=== PATIENT | female | born 1980 | race Caucasian/White ===

== ENCOUNTER → 2019-05-26 11:07 | Outpatient (CLI) | payer OTHER, SELFPAY | PROVIDERS: Visit Provider Nurse Practitioner | DX: R30.0 Dysuria (principal) | CPT/HCPCS: 87086 ==

== ENCOUNTER → 2019-08-13 08:00 | Outpatient (CLI) | payer OTHER, SELFPAY ==
[2019-08-13 09:03] LABS: Appearance Urine UA CLEAR; Bilirubin Urine UA NEGATIVE (NEGATIVE); Color Urine UA YELLOW; Glucose Urine UA NEGATIVE (Negative); Ketones Urine UA NEGATIVE (NEGATIVE); Leukocyte Esterase Urine UA NEGATIVE (NEGATIVE); Nitrite Urine UA NEGATIVE (Negative); Occult Blood Urine UA 3+ (Negative); Protein Urine UA TRACE (Negative); Specific Gravity Urine UA >=1.030 (1.000-1.035); Urobilinogen Urine UA 0.2 E.U./dL (0.2)
[2019-08-13 09:04] LABS: Add Manual Diff / Slide Review NO; Basophils Absolute Auto 0 /uL (0-100); Basophils Percent Auto 0.7 % (0-2); Eosinophils Absolute Auto 300 /uL (0-450); Eosinophils Percent Auto 5.6 % (2-4); Hematocrit 41.7 % (36-46); Hemoglobin 14.2 g/dL (12.0-16.0); Lymphocytes Absolute Auto 1400 /uL (1100-4500); Lymphocytes Percent Auto 25.3 % (25-40); Mean Corpuscular Hemoglobin 28.5 PG (26-34); Mean Corpuscular Volume 83.7 fL (80-100); Monocytes Absolute Auto 400 /uL (0-900); Neutrophils Absolute Auto 3400 /uL (1500-7000); Neutrophils Percent Auto 61.4 % (50-75); Platelet Count 302 X10^3/uL (150-400); Red Blood Cell Count 4.98 X10^6/uL (4.0-5.2); Red Cell Distribution Width 13.5 % (11.6-14.8); White Blood Cell Count 5.5 X10^3/uL (4.5-11.0)
[2019-08-13 09:18] LABS: Alanine Aminotransferase 24 IU/L (<35); Albumin 4.5 g/dL (3.5-5.0); Albumin Globulin Ratio 1.3 (1.0-2.8); Alkaline Phosphatase 73 U/L (38-126); Aspartate Aminotransferase 28 IU/L (14-36); BUN Creatinine Ratio 28.3 (6-22); Bilirubin Total 0.3 mg/dL (0.2-1.3); Blood Urea Nitrogen 17 mg/dL (7-17); Calcium 9.4 mg/dL (8.4-10.2); Carbon Dioxide 29 mmol/L (22-32); Chloride 102 mmol/L (98-107); Cholesterol 191 mg/dL (140-199); Estimated Glomerular Filt Rate > 60.0 mL/min (>60); Globulin 3.6 g/dL (1.7-4.1); Glucose 94 mg/dL (70-100); HDL Cholesterol 49 mg/dL (40-60); HEMOLYSIS < 15 (0-50); LDL Cholesterol Calculated 128 mg/dL (<100); Potassium 3.7 mmol/L (3.4-5.1); Sodium 140 mmol/L (137-145); Total Protein 8.1 g/dL (6.3-8.2); Triglycerides 72 mg/dL (35-150)
[2019-08-13 09:49] LABS: pH Urine UA 5.5 (4.5-8.0)
[2019-08-13 09:52] LABS: Bacteria Urine Few (2-10); Mucus Urine 2+ (Negative); RBC Urine 0-1/HPF (0-5/HPF); Squamous Epithelial Cell Urine 1-5 /HPF (0-5/HPF); WBC Urine 1-5/HPF (0-5/HPF)
[2019-08-13 09:53] LABS: Culture Indicated Urine Specimen Cultured
[2019-08-13 10:13] LABS: Follicle Stimulating Hormone 7.63 mIU/mL
[2019-08-13 10:38] LABS: HEMOLYSIS < 15 (0-50); Iron 40 ug/dL (37-170)
[2019-08-13 10:48] LABS: Percent Iron Saturation 9 % (15-50); Total Iron Binding Capacity 423 ug/dL (265-497); Transferrin 353 mg/dL (206-381)
[2019-08-13 10:55] LABS: Vitamin D 25 Hydroxy (D3) 30.5 ng/mL (30.0-100.0)
[2019-08-13 11:09] LABS: Thyroid Stimulating Hormone 2.65 uIU/mL (0.47-4.68)
== END ==
PROVIDERS: PCP Family Medicine; Visit Provider Family Medicine
DX: Z13.29 Encounter for screening for other suspected endocrine disorder (principal); Z13.220 Encounter for screening for lipoid disorders; D64.9 Anemia, unspecified; E55.9 Vitamin D deficiency, unspecified; N92.6 Irregular menstruation, unspecified; N39.0 Urinary tract infection, site not specified; N94.6 Dysmenorrhea, unspecified
CPT/HCPCS: 36415; 80053; 80061; 81003; 81015; 82306; 83001; 83540; 83550; 84443; 85025; 87086

== ENCOUNTER 2019-12-12 15:01 | Emergency (ER) | payer OTHER, SELFPAY ==
[2019-12-12 15:05] VITALS: BP 131/74; PULSE 84; RESP 16; TEMP 36.9; O2SAT 98
[2019-12-12 15:28] LABS: Add Manual Diff / Slide Review NO; Basophils Absolute Auto 0 /uL (0-100); Basophils Percent Auto 0.2 % (0-2); Eosinophils Absolute Auto 0 /uL (0-450); Eosinophils Percent Auto 0.1 % (2-4); Hematocrit 41.7 % (36-46); Hemoglobin 14.7 g/dL (12.0-16.0); Lymphocytes Absolute Auto 800 /uL (1100-4500); Lymphocytes Percent Auto 9.2 % (25-40); Mean Corpuscular HGB Conc 35.4 % (30-36); Mean Corpuscular Hemoglobin 29.9 PG (26-34); Mean Corpuscular Volume 84.5 fL (80-100); Monocytes Absolute Auto 300 /uL (0-900); Monocytes Percent Auto 2.9 % (3-14); Neutrophils Absolute Auto 7500 /uL (1500-7000); Neutrophils Percent Auto 87.6 % (50-75); Platelet Count 316 X10^3/uL (150-400); Red Blood Cell Count 4.93 X10^6/uL (4.0-5.2); White Blood Cell Count 8.6 X10^3/uL (4.5-11.0)
[2019-12-12] MEDS: SODIUM CHLORIDE 0.9% 1,000 ML 1000 ML IV (15:44)
--- NOTE | 2019-12-12 15:44 | ED.WEAKNESS ---
HPI - Weakness <DALE Snell - Last Filed: 12/12/19 22:45> General Chief complaint: Weakness Stated complaint: diarrhea nause dizziness sob Time Seen by Provider: 12/12/19 15:04 Source: patient Mode of arrival: Ambulatory Limitations: no limitations History of Present Illness HPI Narrative: This is a 39-year-old female, former smoker, has history of anemia presents to ED with chief complain of nausea, fatigue, feeling groggy, and diarrhea since she woke up this morning at 8:00 a.m.. Patient reports she had 1 episode of diarrhea and 2 formed stools today. Reports sharp abdominal cramping which lasted about 30 seconds for 4 episodes in below umbilicus. Patient feels thirsty even though she has been hydrated adequately. Patient denies fever, myalgia, sore throat, cough but states has chills.. No recent exposure to known Covid patients. Patient denies changing in diet or bad food. Patient is not sure whether she has blood in her stool but does not think so. Patient denies urinary symptoms including urgency, frequency, dysuria. LMP 1.5- 2 weeks ago and has IUD in placed. Patient denies recent foreign travel. Related Data Previous Rx's Medication Instructions Recorded ondansetron 4 mg PO BID-TID PRN #7 tab 12/12/19 Allergies Allergy/AdvReac Type Severity Reaction Status Date / Time No Known Drug Allergies Allergy Verified 12/12/19 16:02 Review of Systems <DALE Snell - Last Filed: 12/12/19 22:45> Review of Systems Narrative: General: Denies fever, (+) chills, (+) fatigue, malaise, sweats. HEENT: Denies sinus pain, ear pain, sore throat, difficulty swallowing, dizziness. Respiratory: Denies dyspnea, cough, wheezing, hemoptysis, sputum. Cardiovascular: Denies chest pain, palpitations, orthopnea, edema. Gastrointestinal: See HPI : Denies dysuria, frequency, incontinence, hematuria, urinary retention. Musculoskeletal: Denies weakness, joint pain or bony pain. Skin: Denies rash, skin lesions, or other. Neurologic: Denies weakness, headache, numbness, change in speech, confusion, seizures, incoordination. Psychiatric: No concerning psychosocial issues. 12-point review of systems is negative except for those stated above. Patient History <DALE Snell - Last Filed: 12/12/19 22:45> Medical History Anemia (Chronic ~2016) Chicken pox (Resolved ~1981) Foot pain (Chronic ~2015) Fractures (Resolved ~2015) Headache (Inactive ~1993) Heavy menstrual period (Chronic ~2015) Irregular menstrual cycle (Chronic ~2015) Migraines (Inactive ~1999) Painful menstrual periods (Chronic ~2015) Vertigo (Inactive ~2015) Surgical History Anesthesia (Resolved) History of oral surgery (Resolved ~2008) Family History Father Lymphoma Hypertension Mother Diabetes mellitus Hypertension Hyperlipidemia Grandmother No problems noted. Grandmother Cervical cancer Leukemia Grandfather Prostate cancer Social History Smoking Status: Former smoker Smoking Status: Former smoker alcohol intake frequency: 0-2 drinks per day Substance Use Type: marijuana Exam <DALE Snell - Last Filed: 12/12/19 22:45> Narrative Exam Narrative: GEN: Alert, oriented x 3, well appearing and nourished, and in no acute distress. Head: Normal cephalic, atraumatic. No scalp or temporal tenderness, palpable mass or rash. EYES: Pupils are equal, round, and reactive to light and accommodation. Extraocular muscles are intact bilaterally. There is no subconjunctival hemorrhage, exudate and sclera non-icteric. ENT: Hearing grossly intact. Nose without bleeding, purulent discharge. Mucous membrane moist, no mucosal lesion. Throat without erythema, tonsillar hypertrophy or exudate. Uvula in midline, airway patent. Neck: Trachea in midline. No JVD, non-tender without lymphadenopathy. No masses or thyroid megaly. Supple, non-tender and no meningeal signs. CARDIAC: Normal regular rate and rhythm without murmurs, gallops, or rubs. No chest wall tenderness. No peripheral edema, cyanosis or pallor. Capillary refill is less than 2 seconds. RESPIRATORY: Lungs are clear to auscultate bilaterally. No cough, wheezes, rales, or rhonchi. No stridor, respiratory distress, increase work of breathing, or accessary muscle used. ABD: Abdomen soft, nontender and non-distended. No guarding or rebound tenderness to palpate. Bowel sounds are normal in all 4 quadrants. There is no palpable masses or organomegaly. EXT: Full painless ROM of all extremities with no loss of sensation, strength, effusion or edema. SKIN: Warm, dry, normal color for patient. No erythema, lesions or rash over visible areas. BACK: Nontender without deformity or crepitance. No flank tenderness. NEUROLOGICAL: Alert and oriented to place, time and person. Sensation and motor function intact bilaterally. No facial droops, dysphasia. PSYCHIATRIC: Good judgement and reason, without hallucinations, abnormal affect or abnormal behaviors during the examination. Patient is not suicidal. Initial Vital Signs Initial Vital Signs: Vital Signs Temperature 98.4 F 12/12/19 15:05 Pulse Rate 84 12/12/19 15:05 Respiratory Rate 16 12/12/19 15:05 Blood Pressure 131/74 12/12/19 15:05 Pulse Oximetry 98 12/12/19 15:05 <Mauro Burton DO - Last Filed: 12/13/19 07:03> Initial Vital Signs Initial Vital Signs: Vital Signs Temperature 98.4 F 12/12/19 15:05 Pulse Rate 84 12/12/19 15:05 Respiratory Rate 16 12/12/19 15:05 Blood Pressure 131/74 12/12/19 15:05 Pulse Oximetry 98 12/12/19 15:05 Scores <DALE Snell - Last Filed: 12/12/19 22:45> GCS Mark coma scale eye opening: Spontaneous Eden coma scale verbal response: Orientated Mark coma scale motor response: Obey commands Eden coma scale total score: 15 Course <DALE Snell - Last Filed: 12/12/19 22:45> Course Course Narrative: ([id number]) Patient declined analgesics including Tylenol or toward our when offered. Orders Ordered: Discontinued Medications Sodium Chloride (Normal Saline 0.9%) 1,000 mls @ 1,000 mls/hr IV BOLUS ONE Stop: 12/12/19 16:08 Last Infusion: 12/12/19 16:55 Dose: 0 mls/hr Documented by: Admin: 12/12/19 15:44 Dose: 1,000 mls/hr Documented by: JENN Ketorolac Tromethamine (Toradol) 30 mg IV NOW ONE Stop: 12/12/19 16:08 Last Admin: 12/12/19 16:23 Dose: 30 mg Documented by: JENN Ondansetron HCl (Zofran) 4 mg IV NOW ONE Stop: 12/12/19 15:10 Last Admin: 12/12/19 15:45 Dose: 4 mg Documented by: JENN Vital Signs Vital signs: Vital Signs - 8 hr 12/12/19 15:05 12/12/19 15:59 12/12/19 17:16 Temperature 98.4 F Pulse Rate 84 72 73 Respiratory Rate 16 18 12 Blood Pressure 131/74 Blood Pressure [Right Arm] 110/66 109/59 L Pulse Oximetry 98 97 99 <Mauro Burton DO - Last Filed: 12/13/19 07:03> Orders Ordered: Discontinued Medications Sodium Chloride (Normal Saline 0.9%) 1,000 mls @ 1,000 mls/hr IV BOLUS ONE Stop: 12/12/19 16:08 Last Infusion: 12/12/19 16:55 Dose: 0 mls/hr Documented by: Admin: 12/12/19 15:44 Dose: 1,000 mls/hr Documented by: JENN Ketorolac Tromethamine (Toradol) 30 mg IV NOW ONE Stop: 12/12/19 16:08 Last Admin: 12/12/19 16:23 Dose: 30 mg Documented by: JENN Ondansetron HCl (Zofran) 4 mg IV NOW ONE Stop: 12/12/19 15:10 Last Admin: 12/12/19 15:45 Dose: 4 mg Documented by: JENN Vital Signs Vital signs: Vital Signs - 8 hr 12/12/19 15:05 12/12/19 15:59 12/12/19 17:16 Temperature 98.4 F Pulse Rate 84 72 73 Respiratory Rate 16 18 12 Blood Pressure 131/74 Blood Pressure [Right Arm] 110/66 109/59 L Pulse Oximetry 98 97 99 MDM - Weakness <Inocencio Casanova-Oras, MONITORING COORDINATOR - Last Filed: 12/12/19 22:45> Differential Diagnosis Differential diagnosis: Likely hypoglycemia, dehydration and other (Electrolyte imbalance, UTI, infection, anemia, Covid 19, enteritis) Medical Records Attestation: I reviewed the patient's medical records. Lab Data Attestation: I reviewed the patient's lab results. Result diagrams: 12/12/19 15:15 12/12/19 15:15 Labs: Lab Results 12/12/19 12/12/19 12/12/19 Range/Units 15:15 15:15 17:09 WBC 8.6 (4.5-11.0) X10^3/uL RBC 4.93 (4.0-5.2) X10^6/uL Hgb 14.7 (12.0-16.0) g/dL Hct 41.7 (36-46) % MCV 84.5 (80-100) fL MCH 29.9 (26-34) PG MCHC 35.4 (30-36) % RDW 14.0 (11.6-14.8) % Plt Count 316 (150-400) X10^3/uL Neut % (Auto) 87.6 H (50-75) % Lymph % (Auto) 9.2 L (25-40) % [place] % (Auto) 2.9 L (3-14) % Eos % (Auto) 0.1 L (2-4) % Baso % (Auto) 0.2 (0-2) % Neut # (Auto) 7500 H (2542-3870) /uL Lymph # (Auto) 800 L (3022-6603) /uL [place] # (Auto) 300 (0-900) /uL Eos # (Auto) 0 (0-450) /uL Baso # (Auto) 0 (0-100) /uL Sodium 138 (137-145) mmol/L Potassium 3.8 (3.4-5.1) mmol/L Chloride 105 (98-107) mmol/L Carbon Dioxide 23 (22-32) mmol/L BUN 12 (7-17) mg/dL Creatinine 0.57 (0.52-1.04) mg/dL Estimated GFR > 60.0 (>60) mL/min BUN/Creatinine Ratio 21.1 (6-22) Glucose 121 H (70-100) mg/dL Calcium 9.4 (8.4-10.2) mg/dL Total Bilirubin 0.7 (0.2-1.3) mg/dL AST 31 (14-36) IU/L ALT 25 (<35) IU/L Alkaline Phosphatase 79 (38-126) U/L Total Protein 8.4 H (6.3-8.2) g/dL Albumin 4.7 (3.5-5.0) g/dL Globulin 3.7 (1.7-4.1) g/dL Albumin/Globulin Ratio 1.3 (1.0-2.8) Lipase 51 (23-300) U/L Urine RBC 0-1/hpf (0-5/HPF) Urine WBC 1-5/hpf (0-5/HPF) Ur Squamous Epith Cells 1-5 /hpf (0-5/HPF) Ur Transition Epith Cell 0-1/hpf (0-5/HPF) Urine Bacteria Few (2-10) H (None) Ur Culture Indicated? Specimen cultured Micro UA Comment Sherrell esterase + Point of Care Testing Test Results Negative Urine Dip Bedside Urine Glucose Negative Bedside Urine Bilirubin - Negative Bedside Urine Ketone - Negative Urine Specific [place] 1.010 Bedside Urine Occult Blood +/- Bedside Urine pH 7.0 Bedside Urine Protein - Negative Bedside Urine Urobilinogen - Negative Bedside Urine Nitrite - Negative Bedside Urine Leukocytes + 70 Esterase MDM Narrative Medical decision making narrative: Blood tests were unremarkable. There is no leukocytosis but mildly elevated neutrophils and decreased in lymphocytes. Electrolytes were unremarkable. No hypoglycemia as serum glucose is 121 mg/dL. Normal lipase. Urine test was negative. Urine test after the IV hydration indicates small amount of urine leukocyte esterase without nitrites. There was small amount of occult blood. There was few urine bacteria and no obvious indication for UTI at this time to treat with antibiotic. Urine culture is pending. Abdominal physical exam was unremarkable. Patient was hydrated with IV fluid and Zofran for nausea and IV Toradol for occasional abdominal discomfort. Patient was able to tolerate fluids without vomiting before discharged to home. With patient's mild GI symptoms, headache, Covid 19 was swabbed and pending for result. Patient fell improved before discharged to home. Rx for Zofran as needed use provided and to hydrate adequately. Patient advised self quarantine and physical distance from others with Covid guideline. Treated patient has enteritis at this time and return precautions were discussed with the patient. Patient verbalized understanding and agreement with treatment plan. <Mauro Burton, DO - Last Filed: 12/13/19 07:03> Lab Data Labs: Lab Results 12/12/19 12/12/19 12/12/19 Range/Units 15:15 15:15 17:09 WBC 8.6 (4.5-11.0) X10^3/uL RBC 4.93 (4.0-5.2) X10^6/uL Hgb 14.7 (12.0-16.0) g/dL Hct 41.7 (36-46) % MCV 84.5 (80-100) fL MCH 29.9 (26-34) PG MCHC 35.4 (30-36) % RDW 14.0 (11.6-14.8) % Plt Count 316 (150-400) X10^3/uL Neut % (Auto) 87.6 H (50-75) % Lymph % (Auto) 9.2 L (25-40) % [place] % (Auto) 2.9 L (3-14) % Eos % (Auto) 0.1 L (2-4) % Baso % (Auto) 0.2 (0-2) % Neut # (Auto) 7500 H (5712-3443) /uL Lymph # (Auto) 800 L (8294-9563) /uL [place] # (Auto) 300 (0-900) /uL Eos # (Auto) 0 (0-450) /uL Baso # (Auto) 0 (0-100) /uL Sodium 138 (137-145) mmol/L Potassium 3.8 (3.4-5.1) mmol/L Chloride 105 (98-107) mmol/L Carbon Dioxide 23 (22-32) mmol/L BUN 12 (7-17) mg/dL Creatinine 0.57 (0.52-1.04) mg/dL Estimated GFR > 60.0 (>60) mL/min BUN/Creatinine Ratio 21.1 (6-22) Glucose 121 H (70-100) mg/dL Calcium 9.4 (8.4-10.2) mg/dL Total Bilirubin 0.7 (0.2-1.3) mg/dL AST 31 (14-36) IU/L ALT 25 (<35) IU/L Alkaline Phosphatase 79 (38-126) U/L Total Protein 8.4 H (6.3-8.2) g/dL Albumin 4.7 (3.5-5.0) g/dL Globulin 3.7 (1.7-4.1) g/dL Albumin/Globulin Ratio 1.3 (1.0-2.8) Lipase 51 (23-300) U/L Urine RBC 0-1/hpf (0-5/HPF) Urine WBC 1-5/hpf (0-5/HPF) Ur Squamous Epith Cells 1-5 /hpf (0-5/HPF) Ur Transition Epith Cell 0-1/hpf (0-5/HPF) Urine Bacteria Few (2-10) H (None) Ur Culture Indicated? Specimen cultured Micro UA Comment Sherrell esterase + Point of Care Testing Test Results Negative Urine Dip Bedside Urine Glucose Negative Bedside Urine Bilirubin - Negative Bedside Urine Ketone - Negative Urine Specific [place] 1.010 Bedside Urine Occult Blood +/- Bedside Urine pH 7.0 Bedside Urine Protein - Negative Bedside Urine Urobilinogen - Negative Bedside Urine Nitrite - Negative Bedside Urine Leukocytes + 70 Esterase Discharge Plan Departure Patient Disposition: Home Clinical Impression: Nausea vomiting and diarrhea Abdominal pain Qualifiers: Abdominal location: lower abdomen, unspecified Qualified Code(s): R10.30 - Lower abdominal pain, unspecified Discharge Date/Time: 12/12/19 17:49 Instructions: DI for Abdominal Pain-Adult, Nausea and Vomiting-Adult Activity Restrictions/Additional Instructions: You have been diagnosed with [nausea, diarrhea, dizziness. Lab tests were unremarkable today including CBC, chemistry test, lipase. Urine test does not indicate infection and urine test was negative. You were medicated with IV fluid, Toradol and Zofran. You are able to tolerate fluids at this time. Covid swab is pending. Please self quarantine and you will receive a full call from us with the result in next 3-5 days. Please maintain good hand hygiene and physical distance from others.]. What to do: *Take your medications as directed. [facility] for you to use as needed for nausea or vomiting. Please hydrate adequetly. *Follow up with your primary care provider in 2-3 days, call for an appointment. Let them know you were seen in the ED and that we asked you to be seen in follow up. *Return to ED if you have any new, worsening, or concerning symptoms, such as [chest pain, breathing difficulty, unable to tolerate fluids, fever, worsening pain, feeling like faint or any acute concerns]. Prescriptions: New ondansetron 4 mg tablet,disintegrating 4 mg PO BID-TID PRN (Reason: nausea and vomiting) Qty: 7 RF: 0 Referrals: Bethany Adamson ARNP [Primary Care Provider] - <Mauro Burton DO - Last Filed: 12/13/19 07:03> [facility] Dr Burton Co-Sign Statement: I was available for consultation during this patient's emergency department visit. This chart is signed by myself for administrative purposes only. I did not have direct contact with this patient during this visit. They were seen independently by the APC.
[2019-12-12] MEDS: ONDANSETRON 4 MG/2 ML INJ IV (15:45)
[2019-12-12 15:50] LABS: Alanine Aminotransferase 25 IU/L (<35); Albumin 4.7 g/dL (3.5-5.0); Albumin Globulin Ratio 1.3 (1.0-2.8); Alkaline Phosphatase 79 U/L (38-126); Aspartate Aminotransferase 31 IU/L (14-36); BUN Creatinine Ratio 21.1 (6-22); Bilirubin Total 0.7 mg/dL (0.2-1.3); Blood Urea Nitrogen 12 mg/dL (7-17); Calcium 9.4 mg/dL (8.4-10.2); Carbon Dioxide 23 mmol/L (22-32); Chloride 105 mmol/L (98-107); Estimated Glomerular Filt Rate > 60.0 mL/min (>60); Globulin 3.7 g/dL (1.7-4.1); Glucose 121 mg/dL (70-100); HEMOLYSIS < 15 (0-50); Lipase 51 U/L (23-300); Potassium 3.8 mmol/L (3.4-5.1); Sodium 138 mmol/L (137-145); Total Protein 8.4 g/dL (6.3-8.2)
[2019-12-12 15:59] VITALS: BP 110/66; PULSE 72; RESP 18; O2SAT 97
[2019-12-12] MEDS: KETOROLAC 60 MG/2 ML VIAL 30 MG IV (16:23)
[2019-12-12 17:16] VITALS: BP 109/59; PULSE 73; RESP 12; O2SAT 99
[2019-12-12 17:29] LABS: Bacteria Urine Few (2-10); Culture Indicated Urine Specimen Cultured; RBC Urine 0-1/HPF (0-5/HPF); Squamous Epithelial Cell Urine 1-5 /HPF (0-5/HPF); Transitional Epi Cells Urine 0-1/HPF (0-5/HPF); Urine Comments LEU ESTERASE +; WBC Urine 1-5/HPF (0-5/HPF)
[2019-12-15 04:36] LABS: COVID19 Sendout Not Detected (Not Detected)
== END 2019-12-12 17:49 | disposition home or self-care (01) ==
PROVIDERS: Emergency Provider Nurse Practitioner Family; PCP Nurse Practitioner
DX: Z03.818 Encounter for observation for suspected exposure to other biological agents ruled out (principal); R11.2 Nausea with vomiting, unspecified; R10.30 Lower abdominal pain, unspecified
CPT/HCPCS: 36415; 80053; 81003; 81015; 81025; 83690; 85025; 87086; 87635; 96361; 96374; 96375; 99284; J1885; J2405

== ENCOUNTER → 2020-02-14 14:01 | Outpatient (CLI) | payer OTHER, SELFPAY ==
[2020-02-15 23:19] LABS: COVID19 Sendout Not Detected (Not Detect)
== END ==
PROVIDERS: PCP Nurse Practitioner; Visit Provider Physician Assistant
DX: Z11.59 Encounter for screening for other viral diseases (principal)
CPT/HCPCS: 87635

== ENCOUNTER 2020-02-17 06:46 | Day surgery (SDC) | payer OTHER, SELFPAY ==
[2020-02-13 09:38] VITALS: BMI 24.6
[2020-02-17] VITALS (9 sets, daily range): BP systolic 95–122; BP diastolic 61–74; PULSE 50–93; RESP 10–16; TEMP 36.2–36.4; O2SAT 98–100; BMI 24.3
--- NOTE | 2020-02-17 | PATH_ITS ---
[facility] Accession Number: [id number] . 01 Material submitted: . PART A: vulva - VULVAR LESION PART B: endometrium - ENDOMETRIAL BIOPSY . 01 Diagnosis: A. Skin, Vulva, Biopsy: Irritated lentigo/early lentiginous junctional melanocytic nevus. . B. Endometrium, Biopsy: Inactive endometrium with progestin effect. Benign endocervical mucosa. Negative for hyperplasia and malignancy. [facility] 02/21/2020 1750 Local . 01 Comment: Specimen A (vulva) is also reviewed by dermatopathologist, Dr. Laly Mcgregor, who concurs with the given interpretation. . . . . 01 Electronically signed: . Sandra Ambrose MD, Pathologist NPI- [id number] . 01 Gross description: . Part A: VULVAR LESION: Received in formalin is 1 piece of SEGMENT OF SKIN measuring 0.4 x 0.1 x 0.2 cm which is inked, bisected and submitted in toto in 1 cassette. Part B: ENDOMETRIAL BIOPSY: Received in formalin are multiple fragment(s) of selby, soft tissue measuring 2.0 x 1.3 x 0.3 cm in aggregate submitted entirely in 1 cassette(s) /QBJ 02/18/2020 0847 Local . 01 Pathologist provided ICD-10: D22.9, N92.0 . 01 CPT . 384999, 311989 Performed at: [address] [address], [place], [place] [id number] MD Martin Grier MD Phone: [phone]
--- NOTE | 2020-02-17 07:23 | PM.PREOP ---
Pre-operative Note COVID-19 COVID-19 status: Negative Result date/Date tested (Pos, Neg/Pending): 02/14/20 Interval Note History & Physical reviewed/Exam performed by Physician: Yes Changes to H&P: No
[2020-02-17] MEDS: SCOPOLAMINE 1 PATCH TOP (07:24)
[2020-02-17] MEDS: LACTATED RINGERS 1,000 ML 100 ML IV (07:24)
--- NOTE | 2020-02-17 07:24 | PM.GYNHP.1 ---
History of Present Illness History of Present Illness Reason for admission: vaginal bleeding Narrative: Esther Alves is a 39 year old female with menorrhagia and melenaotic vulvar lesion currently with IUD in place requesting removal of IUD, endometrial ablation, biopsy of vulvar lesion [facility] Medical History Anemia (Chronic ~2016) Chicken pox (Resolved ~1981) Foot pain (Chronic ~2015) Fractures (Resolved ~2015) Headache (Inactive ~1993) Heavy menstrual period (Chronic ~2015) Irregular menstrual cycle (Chronic ~2015) Migraines (Inactive ~1999) Motion sickness (Acute) Nausea and vomiting (Acute) Painful menstrual periods (Chronic ~2015) Vertigo (Inactive ~2015) Vertigo (Acute) Surgical History Anesthesia (Resolved) History of oral surgery (Resolved ~2008) Family History Father Lymphoma Hypertension Mother Diabetes mellitus Hypertension Hyperlipidemia Grandmother No problems noted. Grandmother Cervical cancer Leukemia Grandfather Prostate cancer Social History household members: spouse and children Smoking Status: Former smoker alcohol intake: current Meds Home Medications and Allergies Home Medications Medication Instructions Recorded Confirmed Type ondansetron 4 mg disintegrating 4 mg PO BID-TID PRN #14 tab 01/16/20 02/17/20 Rx tablet scopolamine base 1 mg over 3 days 1 patch TRANSDERMAL Q72H #4 each 01/16/20 02/17/20 Rx transdermal patch Allergies Allergy/AdvReac Type Severity Reaction Status Date / Time No Known Drug Allergies Allergy Verified 02/17/20 07:12 Review of Systems Review of Systems Narrative: Patient is a 39-year-old para 2 whose has had a vasectomy requesting ablation for treatment of menorrhagia. Patient states that she had 2 vaginal deliveries. 4 years ago, 1 year after her delivery of her son, she noticed her menses getting more irregular, 5 days earlier 5 days late. They began getting heavier and heavier so that she was having to change her pad and tampon every 1 hour and a half. On 12/29/2018 she had a Mirena IUD placed to try to help with the bleeding. She stopped having heavy menses but now has constant spotting or heavy discharge. She sometimes has pain with intercourse. Sometimes she has urinary leakage mostly when she stands up after urinating. No problems with bowel movements. Patient also states that the woman who does her bikini wax noticed a dark spot on her vulva that no one else has noticed. Patient is requesting removal of IUD, biopsy of the melanotic lesion of her vulva and endometrial ablation. ROS: Yes All systems reviewed with the patient and are negative except as otherwise documented Exam Vital Signs (past 8 hours): - 02/17/20 07:18 Temperature 97.2 F L Pulse Rate 79 Respiratory Rate 10 L Blood Pressure 112/74 Pulse Oximetry 99 Oxygen Delivery Method Room Air Narrative Exam Narrative: HEENT exam within normal limits. Lungs are clear to auscultation percussion. Heart is regular rate and rhythm no S3-S4 or murmurs. The patient's external genitalia are normal except for she does have a dark lesion on her right perineum that is approximately the size of a pencil eraser. Does appear round and mostly 1 color. Normal vagina and cervix. IUD strings are in place. There is no cervical motion tenderness. Uterus does not palpate enlarged and is nontender. The uterus however is retroverted which probably accounts for her pain with intercourse occasionally. No adnexal masses. Transvaginal ultrasound was performed in September of 2019 did not show any obvious reason for her menorrhagia.. IUD is in the correct place. Patient with menorrhagia that has decreased in volume but has constant bleeding with Mirena IUD. Patient continues to have discomfort. She would like to proceed with removal of the IUD and endometrial ablation. The dark lesion of her perineum should be biopsied but decision made to do that at the time of surgery so she does not have to have the pain in the procedure today in the office. Patient states she had a Pap smear through the [facility] in [place] in December of 2018. She states that was normal. Consent form was reviewed with the patient. Risk of perforation causing damage to internal structures such as bowel, bladder, ureters that could result in additional surgery or opening the abdomen to repair. Small risk of infection so noted antibiotics will be given. Risk of continued bleeding despite the ablation. Risk of pain from bleeding behind scar tissue that will would likely result in needing a hysterectomy. Reaction to medication or anesthesia. Risk of bleeding enough to require blood transfusion very minimal. Consent form was signed and her questions answered. Copy given to the patient. Pre and postop instructions reviewed and handouts given. [facility] Famil Assessment & Plan Assessment and plan (1) Vulvar lesion: Status: Acute (2) Menorrhagia with irregular cycle: Status: Acute Assessment & Plan narrative: Patient with menorrhagia and melanotic vulvar lesion for hysteroscopy with endometrial ablation and biopsy of vulvar lesion COVID-19 COVID-19 status: Negative Result date/Date tested (Pos, Neg/Pending): 02/14/20
[2020-02-17] MEDS: ACETAMINOPHEN IV 1,000 MG/100 ML VIAL 400 MG IV (08:00)
--- NOTE | 2020-02-17 08:14 | SUR.OPER ---
Lithotomy on padded OR bed, head on pillow, arms secured on padded arm boards at <90 degrees abduction. Legs secured in padded yellow fins stirrups.
--- NOTE | 2020-02-17 08:15 | P.OP_ITS ---
Operative Date/Time/Diagnoses Date of procedure: 02/17/20 Time of procedure: 08:15 Pre-op diagnosis: Menorrhagia and melanotic vulvar lesion Post-op diagnosis: same Procedure & Clinicians Procedure: Removal of Mirena IUD, Hysteroscopy with NovaSure endometrial ablation and biopsy of vulvar lesion Procedures Operation Date: 02/17/20 07:45 <No data on this case meets the specified criteria> Indications: Menorrhagia despite Mirena IUD and melanotic vulvar lesion Surgeon: Denice Venegas Anesthesia Type: General Operative Notes Findings: Normal exam under anesthesia with retroverted uterus, Small endometrial polyp, thin endometrium otherwise with normal endometrial contour. Melanotic lesion of the right labia majora Closure Type: not applicable Specimen(s): endometrial curettings and other (Vulvar biopsy) Estimated blood loss (mL): 1 Blood products transfused: none Procedure in detail: Patient was brought to the operating room where she was underwent general anesthesia was placed in the [facility]. Pulsatile stockings were in place and functional. Antibiotics were not indicated. Warming was with blankets. A check system was reviewed with the staff in the room. A single-tooth tenaculum was placed on the anterior lip of the cervix. The cervix was dilated to a 6. Hegar dilator. The hysteroscope was placed through the cervix into the uterus with saline solution run. Curettage was performed. The tissue was sent to pathology. There was no obvious intrauterine pathology. The endometrial lining was very thin. The NovaSure sound was used to determine the length of the uterus which was over 4 cm. This was set on the NovaSure device. The device was placed in the uterus and the width determined to be 3 cm. The length and width were entered into the NovaSure machine. The plunger was pushed to the cervix to effect a good vacuum seal. This was documented by the machine. Cauterization was done with a total power of 66 and 2 minutes 35 seconds. The NovaSure array was pulled back into the device and then the device removed. Patient tolerated the procedure well. The melanotic lesion was grasped and removed with a scalpel. The area of the lesion was treated with dermabond. Counts of instruments and sponges were correct. Patient went to recovery room in good condition. Complications: none Post-operative Condition: stable Disposition: same day surgery Plan for aftercare: Home when awake and stable
== END 2020-02-17 09:25 | disposition home or self-care (01) ==
PROVIDERS: PCP Nurse Practitioner; Referring Provider Specialist; Visit Provider Specialist
PROC: 0U5B8ZZ Destruction of Endometrium, Via Natural or Artificial Opening Endoscopic (ICD-10-PCS; CPT 58563; principal; 2020-02-17 07:45)
DX: N94.6 Dysmenorrhea, unspecified (principal); N92.0 Excessive and frequent menstruation with regular cycle; Z30.432 Encounter for removal of intrauterine contraceptive device; D22.5 Melanocytic nevi of trunk
CPT/HCPCS: 58563; 58301; 11420; J0131; J1100; J1885; J2250; J2704; J3010

== ENCOUNTER → 2020-10-09 10:30 | Outpatient (CLI) | payer OTHER, SELFPAY ==
[2020-10-09 12:23] LABS: Alanine Aminotransferase 38 IU/L (<35); Albumin 4.6 g/dL (3.5-5.0); Albumin Globulin Ratio 1.5 (1.0-2.8); Alkaline Phosphatase 85 U/L (38-126); Aspartate Aminotransferase 39 IU/L (14-36); BUN Creatinine Ratio 16.1 (6-22); Bilirubin Total 0.6 mg/dL (0.2-1.3); Blood Urea Nitrogen 9 mg/dL (7-17); Calcium 9.5 mg/dL (8.4-10.2); Carbon Dioxide 30 mmol/L (22-32); Chloride 100 mmol/L (98-107); Cholesterol 220 mg/dL (140-199); Estimated Glomerular Filt Rate > 60.0 mL/min (>60); Globulin 3.1 g/dL (1.7-4.1); Glucose 87 mg/dL (70-100); HDL Cholesterol 75 mg/dL (40-60); HEMOLYSIS < 15 (0-50); LDL Cholesterol Calculated 134 mg/dL (<100); Potassium 4.4 mmol/L (3.4-5.1); Sodium 136 mmol/L (137-145); Total Protein 7.7 g/dL (6.3-8.2); Triglycerides 57 mg/dL (35-150)
[2020-10-09 12:37] LABS: Free T3, Triiodothyronine Free 3.24 pg/mL (2.77-5.27)
[2020-10-09 12:50] LABS: Thyroid Stimulating Hormone 1.72 uIU/mL (0.47-4.68)
== END ==
PROVIDERS: PCP Nurse Practitioner; Referring Provider Nurse Practitioner; Visit Provider Nurse Practitioner
DX: Z00.00 Encounter for general adult medical examination without abnormal findings (principal)
CPT/HCPCS: 36415; 80053; 80061; 84439; 84443; 84481

== ENCOUNTER → 2021-06-14 11:21 | Outpatient (CLI) | payer OTHER, SELFPAY ==
[2021-06-14 14:14] LABS: COVID19 -Nasal RAPID Negative (Negative)
== END ==
PROVIDERS: PCP Nurse Practitioner; Visit Provider Physician Assistant
DX: Z20.822 Contact with and (suspected) exposure to COVID-19 (principal); R11.0 Nausea; R53.83 Other fatigue
CPT/HCPCS: 87635

== ENCOUNTER → 2022-01-14 15:47 | Outpatient (CLI) | payer OTHER, SELFPAY ==
--- NOTE | 2022-01-14 15:49 | DI.MG.S_ITS ---
BILATERAL DIGITAL SCREENING MAMMOGRAM 3D/2D WITH CAD: 01/14/2022 CLINICAL: Baseline exam Routine screening. Family history of breast cancer. No prior exams were available for comparison. There are scattered fibroglandular elements in both breasts. Current study was also evaluated with a Computer Aided Detection (CAD) system. No significant masses, calcifications, or other findings are seen in either breast. IMPRESSION: NEGATIVE There is no mammographic evidence of malignancy. A 1 year screening mammogram is recommended. This exam was interpreted at Station ID: [id number]. NOTE: For mammograms, a report in lay terms will be sent to the patient. Approximately 15% of breast malignancies will not be visualized mammographically. In the management of a palpable breast mass, a negative mammogram must not discourage biopsy of a clinically suspicious lesion. Electronically Signed By: Delvin art/janes:01/15/2022 08:22:23 letter sent: Normal Exam ACR BI-RADS Category 1: Negative 3341F
== END ==
PROVIDERS: PCP Nurse Practitioner; Referring Provider Nurse Practitioner; Visit Provider Nurse Practitioner
DX: Z12.31 Encounter for screening mammogram for malignant neoplasm of breast (principal); Z80.3 Family history of malignant neoplasm of breast
CPT/HCPCS: 77063; 77067

== ENCOUNTER → 2022-04-17 08:45 | Outpatient (CLI) | payer OTHER, SELFPAY ==
[2022-04-17 10:14] LABS: Hematocrit 38.8 % (36-46); Hemoglobin 13.3 g/dL (12.0-16.0); Mean Corpuscular HGB Conc 34.3 % (30-36); Mean Corpuscular Hemoglobin 29.3 PG (26-34); Mean Corpuscular Volume 85.5 fL (80-100); Platelet Count 320 X10^3/uL (150-400); Red Blood Cell Count 4.54 X10^6/uL (4.0-5.2); White Blood Cell Count 4.4 X10^3/uL (4.5-11.0)
[2022-04-17 10:43] LABS: Alanine Aminotransferase 19 IU/L (<35); Albumin 4.1 g/dL (3.5-5.0); Albumin Globulin Ratio 1.2 (1.0-2.8); Alkaline Phosphatase 60 U/L (38-126); Aspartate Aminotransferase 26 IU/L (14-36); Bilirubin Total 0.4 mg/dL (0.2-1.3); Blood Urea Nitrogen 8 mg/dL (7-17); Calcium 8.4 mg/dL (8.4-10.2); Carbon Dioxide 28 mmol/L (22-32); Chloride 103 mmol/L (98-107); Cholesterol 164 mg/dL (140-199); Estimated Glomerular Filt Rate > 60 mL/min (>60); Globulin 3.3 g/dL (1.7-4.1); Glucose 87 mg/dL (70-100); HDL Cholesterol 61 mg/dL (40-60); HEMOLYSIS < 15 (0-50); LDL Cholesterol Calculated 97 mg/dL (<100); Potassium 3.6 mmol/L (3.4-5.1); Sodium 137 mmol/L (137-145); Total Protein 7.4 g/dL (6.3-8.2); Triglycerides 29 mg/dL (35-150)
[2022-04-17 10:48] LABS: Neutrophils Absolute Manual 3432 /uL (3000-5900); Total Cells Counted 100
[2022-04-17 10:51] LABS: RBC Morphology Normal Morphology
[2022-04-17 11:02] LABS: Free T3, Triiodothyronine Free 3.82 pg/mL (2.77-5.27); Free T4, Direct Thyroxine 1.16 ng/dL (0.78-2.19)
[2022-04-17 11:16] LABS: Thyroid Stimulating Hormone 0.685 uIU/mL (0.47-4.68)
== END ==
PROVIDERS: PCP Nurse Practitioner; Referring Provider Nurse Practitioner; Visit Provider Nurse Practitioner
DX: Z00.00 Encounter for general adult medical examination without abnormal findings (principal)
CPT/HCPCS: 80053; 80061; 84439; 84443; 84481; 85025

== ENCOUNTER → 2023-05-25 07:59 | Outpatient (CLI) | payer OTHER, SELFPAY ==
[2023-05-25 09:16] LABS: Add Manual Diff / Slide Review NO; Basophils Absolute Auto 0 /uL (0-100); Eosinophils Absolute Auto 200 /uL (0-450); Eosinophils Percent Auto 3.2 % (2-4); Hematocrit 39.6 % (36-46); Hemoglobin 13.4 g/dL (12.0-16.0); Lymphocytes Absolute Auto 1200 /uL (1100-4500); Lymphocytes Percent Auto 25.3 % (25-40); Mean Corpuscular HGB Conc 33.9 % (30-36); Mean Corpuscular Hemoglobin 29.4 PG (26-34); Mean Corpuscular Volume 86.7 fL (80-100); Monocytes Absolute Auto 300 /uL (0-900); Monocytes Percent Auto 6.8 % (3-14); Neutrophils Absolute Auto 3100 /uL (1500-7000); Neutrophils Percent Auto 63.7 % (50-75); Platelet Count 325 X10^3/uL (150-400); Red Blood Cell Count 4.56 X10^6/uL (4.0-5.2); Red Cell Distribution Width 13.5 % (11.6-14.8); White Blood Cell Count 4.9 X10^3/uL (4.5-11.0)
[2023-05-25 09:40] LABS: Alanine Aminotransferase 16 IU/L (<35); Albumin 4.3 g/dL (3.5-5.0); Albumin Globulin Ratio 1.5 (1.0-2.8); Alkaline Phosphatase 61 U/L (38-126); Aspartate Aminotransferase 23 IU/L (14-36); Bilirubin Total 0.5 mg/dL (0.2-1.3); Blood Urea Nitrogen 12 mg/dL (7-17); Calcium 9.5 mg/dL (8.4-10.2); Carbon Dioxide 29 mmol/L (22-32); Chloride 99 mmol/L (98-107); Cholesterol 197 mg/dL (140-199); Estimated Glomerular Filt Rate > 60 mL/min (>60); Globulin 2.9 g/dL (1.7-4.1); Glucose 92 mg/dL (70-100); HDL Cholesterol 68 mg/dL (40-60); HEMOLYSIS < 15 (0-50); LDL Cholesterol Calculated 117 mg/dL (<100); Potassium 4.1 mmol/L (3.4-5.1); Sodium 137 mmol/L (137-145); Total Protein 7.2 g/dL (6.3-8.2); Triglycerides 61 mg/dL (35-150)
[2023-05-25 09:53] LABS: Free T3, Triiodothyronine Free 3.51 pg/mL (2.77-5.27); Free T4, Direct Thyroxine 1.18 ng/dL (0.78-2.19)
[2023-05-25 10:06] LABS: Thyroid Stimulating Hormone 1.02 uIU/mL (0.47-4.68)
[2023-05-25 17:26] LABS: HIV 1 & 2 Ab/Ag 4th Gen Combo NEGATIVE (NEGATIVE); Hep C Virus Ab w/Reflex Quant NEGATIVE s/c (NEGATIVE)
== END ==
PROVIDERS: PCP Nurse Practitioner; Referring Provider Nurse Practitioner; Visit Provider Nurse Practitioner
DX: Z00.00 Encounter for general adult medical examination without abnormal findings (principal); Z11.4 Encounter for screening for human immunodeficiency virus [HIV]; Z11.59 Encounter for screening for other viral diseases
CPT/HCPCS: 36415; 80053; 80061; 84439; 84443; 84481; 85025; 86803; 87389

== ENCOUNTER → 2023-06-08 08:08 | Outpatient (CLI) | payer OTHER, SELFPAY ==
--- NOTE | 2023-06-08 08:09 | DI.MG.S_ITS ---
BILATERAL DIGITAL SCREENING MAMMOGRAM 3D/2D WITH CAD: 06/08/2023 CLINICAL: Routine screening. Family history of breast cancer. Comparison is made to exam dated: 01/14/2022 mammogram - [facility]. There are scattered areas of fibroglandular density in both breasts (category b / 25%-50% glandular tissue). Current study was also evaluated with a Computer Aided Detection (CAD) system. No significant masses, calcifications, or other findings are seen in either breast. IMPRESSION: NEGATIVE There is no mammographic evidence of malignancy. A 1 year screening mammogram is recommended. Based on the Tyrer Cuzick model (a risk assessment model) the patient's lifetime risk is 16.6% and her 10 year risk is 2.7%. According to the ACR, ACS, and NCCN guidelines, an annual breast MRI exam along with mammogram is recommended if the patient's lifetime risk is 20% or greater. This exam was interpreted at Station ID: [id number]. NOTE: For mammograms, a report in lay terms will be sent to the patient. Approximately 15% of breast malignancies will not be visualized mammographically. In the management of a palpable breast mass, a negative mammogram must not discourage biopsy of a clinically suspicious lesion. Electronically Signed By: Samreen Pace M.D., PH.D komal/janes:06/08/2023 19:03:49 letter sent: Normal Exam ACR BI-RADS Category 1: Negative [id number]
== END ==
PROVIDERS: PCP Nurse Practitioner; Referring Provider Nurse Practitioner; Visit Provider Nurse Practitioner
DX: Z12.31 Encounter for screening mammogram for malignant neoplasm of breast (principal); Z80.3 Family history of malignant neoplasm of breast
CPT/HCPCS: 77063; 77067

== ENCOUNTER → 2023-10-12 12:56 | Outpatient (CLI) | payer OTHER, SELFPAY ==
[2023-10-12 20:03] LABS: Appearance Urine UA CLEAR; Bilirubin Urine UA NEGATIVE (NEGATIVE); Color Urine UA YELLOW; Glucose Urine UA NEGATIVE (Negative); Ketones Urine UA NEGATIVE (NEGATIVE); Leukocyte Esterase Urine UA NEGATIVE (NEGATIVE); Nitrite Urine UA POSITIVE (Negative); Occult Blood Urine UA 2+ (Negative); Protein Urine UA NEGATIVE (Negative); Specific Gravity Urine UA 1.015 (1.000-1.035); Urobilinogen Urine UA 0.2 E.U./dL (0.2); pH Urine UA 6.5 (4.5-8.0)
[2023-10-12 20:13] LABS: Bacteria Urine Moderate (10-30); Culture Indicated Urine Specimen Cultured; Mucus Urine 1+ (Negative); RBC Urine 1-5/HPF (0-5/HPF); Squamous Epithelial Cell Urine 1-5 /HPF (0-5/HPF); Urine Volume 10mL (spun); WBC Urine 1-5/HPF (0-5/HPF)
== END ==
PROVIDERS: PCP Nurse Practitioner; Visit Provider Nurse Practitioner
DX: N94.9 Unspecified condition associated with female genital organs and menstrual cycle (principal); N94.89 Other specified conditions associated with female genital organs and menstrual cycle; N92.0 Excessive and frequent menstruation with regular cycle; R30.0 Dysuria; R31.9 Hematuria, unspecified
CPT/HCPCS: 81001; 87070; 87077; 87086; 87186; 87205

== ENCOUNTER → 2024-07-05 09:21 | Outpatient (CLI) | payer OTHER, SELFPAY ==
--- NOTE | 2024-07-05 09:22 | DI.MG.S_ITS ---
BILATERAL DIGITAL SCREENING MAMMOGRAM 3D/2D WITH CAD: 07/05/2024 CLINICAL: Routine screening. Family history of breast cancer. Comparison is made to exams dated: 06/08/2023 mammogram and 01/14/2022 mammogram - [facility]. There are scattered areas of fibroglandular density (category b / 25%-50% glandular tissue). Current study was also evaluated with a Computer Aided Detection (CAD) system. No significant masses, calcifications, or other findings are seen in either breast. There has been no significant interval change. IMPRESSION: NEGATIVE There is no mammographic evidence of malignancy. A 1 year screening mammogram is recommended. Based on the Tyrer Cuzick model (a risk assessment model) the patient's lifetime risk is 16.5% and her 10 year risk is 2.9%. According to the ACR, ACS, and NCCN guidelines, an annual breast MRI exam along with mammogram is recommended if the patient's lifetime risk is 20% or greater. This exam was interpreted at Station ID: [id number]. NOTE: For mammograms, a report in lay terms will be sent to the patient. Approximately 15% of breast malignancies will not be visualized mammographically. In the management of a palpable breast mass, a negative mammogram must not discourage biopsy of a clinically suspicious lesion. Electronically Signed By: Delvin art/janes:07/05/2024 10:42:20 letter sent: Normal Exam ACR BI-RADS Category 1: Negative
== END ==
LOC: MAMMO 09:22
PROVIDERS: PCP Student in an Organized Health Care Education/Training Program; Referring Provider Student in an Organized Health Care Education/Training Program; Visit Provider Student in an Organized Health Care Education/Training Program
DX: Z12.31 Encounter for screening mammogram for malignant neoplasm of breast (principal); Z80.3 Family history of malignant neoplasm of breast
CPT/HCPCS: 77063; 77067

== ENCOUNTER → 2025-05-21 13:25 | Outpatient (CLI) | payer OTHER, SELFPAY | PROVIDERS: PCP Student in an Organized Health Care Education/Training Program; Visit Provider Chiropractor | DX: R39.15 Urgency of urination (principal) | CPT/HCPCS: 87077; 87086; 87186 ==

== ENCOUNTER → 2025-06-01 12:10 | Outpatient (CLI) | payer OTHER, SELFPAY ==
[2025-06-01 12:41] LABS: Bilirubin Urine UA NEGATIVE (NEGATIVE); Color Urine UA YELLOW; Glucose Urine UA NEGATIVE (Negative); Ketones Urine UA NEGATIVE (NEGATIVE); Leukocyte Esterase Urine UA 1+ (NEGATIVE); Nitrite Urine UA NEGATIVE (Negative); Occult Blood Urine UA 2+ (Negative); Protein Urine UA NEGATIVE (Negative); Specific Gravity Urine UA 1.010 (1.000-1.035); Urobilinogen Urine UA 0.2 E.U./dL (0.2)
[2025-06-01 12:44] LABS: pH Urine UA 7.0 (4.5-8.0)
[2025-06-01 12:52] LABS: Culture Indicated Urine Specimen Cultured
[2025-06-01 12:53] LABS: Appearance Urine UA Slightly Cloudy
== END ==
LOC: LAB 12:12
PROVIDERS: PCP Student in an Organized Health Care Education/Training Program; Referring Provider Student in an Organized Health Care Education/Training Program; Visit Provider Student in an Organized Health Care Education/Training Program
DX: R30.0 Dysuria (principal)
CPT/HCPCS: 81001; 87086